=== PATIENT | male | born 1955 | race Two or more races ===

== ENCOUNTER 2017-06-06 22:34 | Emergency (ER) | payer BC, MEDICAID ==
[~2017-06-06] VITALS: Ht 172.7 cm; Wt 81.6 kg
--- NOTE | 2017-06-06 22:54 | NUR ---
PT TO ER BED 15. SINDY FROM [facility] FOR G-TUBE REPLACEMENT. PT PLACED ON KNOBBER. VSS/RESP EVEN UNLABORED/NAD NOTED/SKIN WARM AND DRY/DENIES N-V-D/AFEBRILE/AOX4. AWAITING MD KEMP.
--- NOTE | 2017-06-06 23:00 | NUR ---
AT [facility] TO REPLACE G TUBE. 20FR.
[2017-06-06] MEDS ORDERED: DIATR MEGLU/DIATRIZOATE SODIUM 30 ML BOTTLE (GASTROGRAPHIN) ONE (23:07)
--- NOTE | 2017-06-06 23:10 | NUR ---
XRAY AT BEDSIDE TO CHECK PLACEMENT.
--- NOTE | 2017-06-07 00:01 | NUR ---
REPORT GIVEN TO [facility] FOR TRANSPORT.
--- NOTE | 2017-06-07 00:03 | NUR ---
Patient discharged to home in stable condition. Written and verbal after care instructions given. Patient verbalizes understanding of instruction.
[2017-06-07 00:05] VITALS: BP 131/75
== END 2017-06-07 00:06 | disposition home or self-care (01) ==
LOC: ER 22:44
DX: K94.23 Gastrostomy malfunction (principal); E11.9 Type 2 diabetes mellitus without complications; I10 Essential (primary) hypertension; Z88.6 Allergy status to analgesic agent
CPT/HCPCS: 74018; A4606; Q9963; Z7610

== ENCOUNTER 2017-06-10 07:56 | Emergency (ER) | payer BC, MEDICAID ==
[~2017-06-10] VITALS: Ht 182.9 cm; Wt 88.0 kg
--- NOTE | 2017-06-10 08:00 | NUR ---
BBRA FROM [facility] FOR ABD PAIN ~ AROUND HIS GT SITE SINCE LAST NIGHT, FEVER LAST NIGHT. A/OX 2, BREATHING EVEN AND UNLABORED. NO SOB, NAD, VITALS STABLE. NO FEVER AT THIS TIME. SAFETY AND COMFORT MEASURES IN PLACE. AWAITING MD ORDERS.
--- NOTE | 2017-06-10 08:20 | NUR ---
NEW IV STARTED ON LEFT HAND, 20G. BLOOD DRAWN AND SENT TO LAB.
--- NOTE | 2017-06-10 08:23 | NUR ---
WARD NURSE AT BEDSIDE
[2017-06-10 08:30] LABS: BASOPHILS % (AUTO) 0.1 % (0.0-2.0); HEMATOCRIT 42 % (39-51); HEMOGLOBIN 14.1 g/dL (13.5-17.5); LYMPHOCYTES # (AUTO) 1.1 /CMM (0.8-4.8); MEAN CORPUSCULAR HGB CONC 33 g/dl (31.0-36.0); MEAN CORPUSCULAR VOLUME 90 fL (80-96); MONOCYTES # (AUTO) 0.4 /CMM (0.1-1.30); MONOCYTES % (AUTO) 4.4 % (2.0-12.0); NEUTROPHILS # (AUTO) 7.8 /CMM (1.8-8.9); NEUTROPHILS % (AUTO) 81.5 % (43.0-81.0); PLATELET COUNT (AUTO) 210 /CMM (150-450); RED BLOOD CELL COUNT(AUTO) 4.73 MIL/uL (4.5-6.0); WHITE BLOOD COUNT (AUTO) 9.6 K/uL (4.3-11.0)
[2017-06-10] MEDS ORDERED: IV NS 0.9% 500 ML BAG IV ONE (08:30)
[2017-06-10 08:40] LABS: CARBON DIOXIDE 27 mmol/L (21-32); CHLORIDE 96 mmol/L (98-107); GLUCOSE 226 mg/dL (74-106); POTASSIUM 4.6 mmol/L (3.5-5.1); SODIUM SERUM 133 mmol/L (136-145); UREA NITROGEN, BLOOD 19 mg/dL (7-18)
[2017-06-10 08:46] LABS: ALANINE AMINOTRANSFERASE 29 U/L (12-78); ALBUMIN 4.1 g/dL (3.4-5.0); ALKALINE PHOSPHATASE 116 U/L (46-116); ASPARTATE AMINOTRANSFERASE 19 U/L (15-37); BILIRUBIN,DIRECT 0.2 mg/dL (0.0-0.2); BILIRUBIN,TOTAL 0.7 mg/dL (0.2-1.0)
[2017-06-10 08:48] LABS: TROPONIN I < 0.017 ng/mL (0.00-0.056)
[2017-06-10] MEDS ORDERED: HYDROMORPHONE INJ 2 MG/ML DISP.SYRIN ONE (08:53)
[2017-06-10] MEDS ORDERED: ONDANSETRON HCL/PF 4 MG/2 ML VIAL ONE (08:54)
[2017-06-10] MEDS ORDERED: HYDROMORPHONE 1 MG/1 ML DISP.SYRIN IV ONE (09:00)
[2017-06-10] MEDS ORDERED: ONDANSETRON HCL/PF - ER 4 MG/2 ML VIAL IV ONE (09:00)
[2017-06-10 09:05] LABS: INR 1.07 (0.87-1.13)
--- NOTE | 2017-06-10 09:05 | NUR ---
PATIENT TAKENT TO CT VIA STRETCHER.
--- NOTE | 2017-06-10 09:15 | NUR ---
PATIENT RETURNED FROM CT IN STABLE CONDITION.
--- NOTE | 2017-06-10 09:59 | NUR ---
GTUBE REPLACED BY DR. LANDIS, TOLERATED WELL. 20F REINSERTED
[2017-06-10] MEDS ORDERED: DIATR MEGLU/DIATRIZOATE SODIUM 30 ML BOTTLE (GASTROGRAPHIN) PO ONE (10:00)
[2017-06-10] MEDS ORDERED: DIATR MEGLU/DIATRIZOATE SODIUM 30 ML BOTTLE (GASTROGRAPHIN) ONE (10:20)
--- NOTE | 2017-06-10 10:30 | NUR ---
EXPLOSIVE ORDNANCE DISPOSAL SPECIALIST AT BEDSIDE, GASTROGRAFEN GIVEN VIA GT. XRAY TAKEN, WILL F/U.
--- NOTE | 2017-06-10 11:09 | NUR ---
DR LANDIS PAGED THRU OFFICE
--- NOTE | 2017-06-10 12:07 | NUR ---
CALLED DR GARCIA, WAS PAGED.
--- NOTE | 2017-06-10 12:48 | NUR ---
CALLED [facility] FOR TRANSPORT ETA OF 3600 WAS GIVEN. TRIP#[id number]
--- NOTE | 2017-06-10 14:03 | NUR ---
Report given to emt at bedside. IV removed. Catheter intact and site benign. Pressure and 4x4 applied to site. No bleeding noted. Patient discharged to [facility] living in stable condition. Written and verbal after care instructions given. Patient verbalizes understanding of instruction.
[2017-06-10 14:04] VITALS: BP 143/72
== END 2017-06-10 14:06 ==
LOC: ER 08:00
DX: Z43.1 Encounter for attention to gastrostomy (principal); R10.9 Unspecified abdominal pain; I10 Essential (primary) hypertension; E11.9 Type 2 diabetes mellitus without complications; Z88.6 Allergy status to analgesic agent
CPT/HCPCS: 36415; 43760; 71045; 74018; 74176; 80048; 80076; 83605; 84484; 85025; 85730; 87040 ×2; 93005; 96374; 96375; 99285; A4606; J1170; J2405 ×2; J7040; Q9963 ×2; Z7610

== ENCOUNTER 2017-11-28 09:31 | Emergency (ER) | payer BC ==
[~2017-11-28] VITALS: Ht 162.6 cm; Wt 83.0 kg
[2017-11-28 09:31] VITALS: BP 121/83
[2017-11-28 10:27] LABS: BASOPHILS # (AUTO) 0.2 /CMM (0.0-0.2); BASOPHILS % (AUTO) 2.2 % (0.0-2.0); EOSINOPHILS % (AUTO) 1.6 % (0.0-6.0); HEMATOCRIT 41 % (39-51); HEMOGLOBIN 13.4 g/dL (13.5-17.5); LYMPHOCYTES # (AUTO) 1.3 /CMM (0.8-4.8); LYMPHOCYTES % (AUTO) 13.6 % (20.0-44.0); MEAN CORPUSCULAR HGB CONC 32 g/dl (31.0-36.0); MEAN CORPUSCULAR VOLUME 89 fL (80-96); MONOCYTES # (AUTO) 0.6 /CMM (0.1-1.30); NEUTROPHILS % (AUTO) 75.6 % (43.0-81.0); PLATELET COUNT (AUTO) 195 /CMM (150-450); RDW COEFFICIENT OF VARIATION 12.3 (11.5-15.0); RED BLOOD CELL COUNT(AUTO) 4.66 MIL/uL (4.5-6.0); WHITE BLOOD COUNT (AUTO) 9.2 K/uL (4.3-11.0)
[2017-11-28 10:36] LABS: CALCIUM, SERUM 9.1 mg/dL (8.5-10.1); CREATININE 0.9 mg/dL (0.6-1.3); POTASSIUM 4.4 mmol/L (3.5-5.1)
[2017-11-28 10:45] LABS: INR 1.08 (0.87-1.13)
--- NOTE | 2017-11-28 12:16 | NUR ---
Gabriella lott in [facility] - 11/28/17 at 1248 by PHUONG CALLED ISAAC FROM [facility] SHE SAID SHE WILL GIVE US A CALL ONCE WE GET A BED.
--- NOTE | 2017-11-28 12:31 | NUR ---
JUMANA FROM [facility] PATIENT WILL BE TX TO ROOM [id number] RN TO RN REPORT ACCEPTED BY DR OROZCO
--- NOTE | 2017-11-28 12:48 | NUR ---
CALLED [facility] FOR [place] ETA OF 1330 WAS GIVEN. TRIP#[id number]
== END 2017-11-28 15:06 | disposition short-term general hospital (02) ==
LOC: ER 09:32
DX: K94.29 Other complications of gastrostomy (principal); E11.9 Type 2 diabetes mellitus without complications; I10 Essential (primary) hypertension; Z88.8 Allergy status to other drugs, medicaments and biological substances; Z86.73 Personal history of transient ischemic attack (TIA), and cerebral infarction without residual deficits
CPT/HCPCS: 36415; 71045; 80048; 85025; 85730; 93005; 99285; A4606; Z7610